=== PATIENT | male | born 1965 | race Caucasian/White ===

== ENCOUNTER 2016-09-07 12:21 | Emergency (ER) | payer OTHER ==
[2016-09-07 12:50] LABS: BASO # 0.1 10_X3_uL (0.0-0.1); BASO % 0.8 % (0.2-1.2); EOS # 0.1 10_X3_uL (0.0-0.5); EOS % 1.4 % (0.8-7.0); GRAN # 3.8 10_X3_uL (1.8-5.4); GRAN % 64.7 % (34.0-67.9); HEMATOCRIT 45.6 % (40-51); HEMOGLOBIN 16.9 g/dL (13.7-17.5); LYMPH # 1.5 10_X3_uL (1.3-3.6); LYMPH % 25.3 % (21.8-53.1); MEAN CORPUSCULAR HEMOGLOBIN 33.2 pg (27.0-33.0); MEAN CORPUSCULAR HGB CONC 37.1 g/dL (32.0-36.0); MEAN CORPUSCULAR VOLUME 89.6 fL (79-92); MEAN PLATELET VOLUME 11.6 fl (7.5-11.5); MONO # 0.5 10_X3_uL (0.3-0.8); MONO % 7.8 % (5.3-12.2); PLATELET COUNT 125 x10_3/uL (163-337); RED BLOOD COUNT 5.09 x10_6/uL (4.6-6.1); RED CELL DISTRIBUTION WIDTH 13.5 % (11.6-14.4); WHITE BLOOD COUNT 5.9 x10_3/uL (4.2-9.1)
[2016-09-07 13:03] LABS: ALBUMIN 4.5 gm/dL (3.4-5.0); ALKALINE PHOSPHATASE 93 U/L (50-136); ALT/SGPT 50 U/L (7.53-40.17); AMYLASE 30 U/L (15.62-74.58); AST/SGOT 37 U/L (6.66-35.34); BILIRUBIN,TOTAL 0.94 mg/dL (0.0-1.0); BLOOD UREA NITROGEN 17 mg/dL (7-18); CALCIUM 9.7 mg/dL (8.7-10.7); CARBON DIOXIDE 22 mmol/L (21-32); CREATININE 0.9 mg/dL (0.6-1.3); GLUCOSE,RANDOM 160 mg/dL (70-99); LIPASE 33 U/L (6.75-60.75); POTASSIUM 4.8 mmol/L (3.5-5.1); SODIUM 136 mmol/L (136-145); TOTAL PROTEIN 7.8 gm/dL (6.4-8.2)
== END 2016-09-07 15:31 | disposition home or self-care (01) ==
LOC: ER 12:21
PROVIDERS: General Practice
DX: K80.80 Other cholelithiasis without obstruction (principal); R74.8 Abnormal levels of other serum enzymes; R07.89 Other chest pain; R10.13 Epigastric pain; R10.10 Upper abdominal pain, unspecified; K59.00 Constipation, unspecified; E66.01 Morbid (severe) obesity due to excess calories; I10 Essential (primary) hypertension; E11.9 Type 2 diabetes mellitus without complications; Z79.84 Long term (current) use of oral hypoglycemic drugs; Z79.899 Other long term (current) drug therapy; Z79.82 Long term (current) use of aspirin; Z88.1 Allergy status to other antibiotic agents
CPT/HCPCS: 36415; 71020; 80053; 82150; 83690; 85025; 93005; 99284-25